=== PATIENT | male | born 1960 | race Caucasian/White ===

== ENCOUNTER → 2021-02-28 | Outpatient (CLI) | payer BC ==
--- NOTE | 2021-02-28 11:15 | Diagnostic Imaging Report ---
INDICATION: Left wrist pain. COMPARISON: None. FINDINGS: 3 views of the left wrist demonstrate no acute fracture or dislocation. There are no focal osseous lesions. No avascular necrosis is seen. The visualized soft tissue structures are unremarkable. The pronator fat pad is not displaced. There are no radio opaque foreign bodies. IMPRESSION: 1. Unremarkable radiographic exam of the left wrist. Dictated by: Dictated on workstation # [id number]
== END ==
LOC: RAD FS 10:31
PROVIDERS: ATTEND Nurse Practitioner
DX: M25.532 Pain in left wrist (principal)
CPT/HCPCS: 73110